=== PATIENT | female | born 2000 | race Caucasian/White ===

== ENCOUNTER 2018-09-19 10:11 | Emergency (ER) | payer OTHER ==
[2018-09-19] MEDS ORDERED: ONDANSETRON 4 MG/2 ML VIAL ONE (10:59)
[2018-09-19] MEDS ORDERED: MORPHINE 4 MG/ML SYR ONE (10:59)
[2018-09-19] MEDS ORDERED: NA CHLORIDE 0.9% 1,000 ML ONE (10:59)
[2018-09-19 11:14] LABS: Absolute Lymphocytes (CBC) 1.2 K/uL (0.7-4.9); Absolute Monocytes 0.8 K/uL (0.1-1.3); Absolute Neutrophil 5.2 K/uL (1.8-8.0); Basophils % 0.2 % (0-1.3); Eosinophils % 1.3 % (0-4.4); Lymphocytes % 16.6 % (15.3-44.8); MPV 8.5 fL (7.6-11.3); Monocytes % 10.8 % (3.3-12.3); RBC Red Blood Cell Count 4.66 M/uL (3.86-4.86)
[2018-09-19 11:19] LABS: ALT/SGPT 21 U/L (12-78); AST/SGOT 28 U/L (15-37); Alkaline Phosphatase 76 U/L (45-117); BUN Blood Urea Nitrogen 14 mg/dL (7-18); Bicarbonate 27 mmol/L (21-32); Bilirubin Direct 0.2 mg/dL (0-0.2); Bilirubin Total 0.7 mg/dL (0.2-1.0); Glucose Level 75 mg/dL (74-106); Lipase 144 U/L (73-393); Potassium 3.8 mmol/L (3.5-5.1); Protein, Total 7.7 g/dL (6.4-8.2); Sodium Level 142 mmol/L (136-145)
--- NOTE | 2018-09-19 12:32 | RAD REPORT ---
EXAM DESCRIPTION: CT - Stone Protocol - 09/19/2018 12:23 pm CLINICAL HISTORY: Left flank pain COMPARISON: None. TECHNIQUE: Axial 5 mm thick images were obtained without oral or IV contrast. The [id number] span s the entirety of the system including uppermost abdomen and lung bases. All CT scans are performed using dose optimization technique as appropriate and may include automated exposure control or mA/KV adjustment according to patient size. FINDINGS: No hydronephrosis or hydroureter. No renal pelvic or caliceal calcifications. No parenchym al calcifications seen. A 3 millimeter calcification is present in the lower left pelvis. Detail is s omewhat limited. However, this appears to be adjacent to but not within the left ureter. No suspiciou s renal masses. Isodense masses and pyelonephritis are not excluded on a stone protocol CT scan. No b ladder calculi. No bladder wall thickening or mass. No significant adrenal finding. Uterus and ovarie s show no suspicious findings. Imaged portions of the liver, spleen and pancreas show no suspicious findings on non-contrast imaging . No gallbladder or biliary tree abnormality identified. No suspicious bowel findings. No hernia, mass or bulky lymphadenopathy noted. No free air, free fluid or inflammatory stranding. No significant bony abnormality. IMPRESSION: No hydronephrosis and no obstructing calculus confirmed. A small 3 mm calcification in the lower left pelvis is believed to be adjacent to the ureter but not within the ureter. No other finding seen to explain left-sided pain. Isodense masses and pyelonephritis are not excluded on stone protocol technique. No acute GI or HAND BRIM IRONER process.
[2018-09-19 12:50] LABS: Urine Blood TRACE (NEG); Urine Glucose NEGATIVE (NEG); Urine Protein NEGATIVE (NEG); Urine Specific Gravity 1.025 (1.005-1.030); Urine pH 5.5 (5.0-7.0)
--- NOTE | 2018-09-19 13:33 | RAD REPORT ---
EXAM DESCRIPTION: Yara Heredia (2 Views)09/19/2018 1:27 pm CLINICAL HISTORY: Chest pain COMPARISON: None FINDINGS: The lungs appear clear of acute infiltrate. The heart is normal size IMPRESSION: No acute abnormalities displayed
--- NOTE | 2018-09-19 15:21 | RAD REPORT ---
EXAM DESCRIPTION: CT - Chest Abdomen Pelvis W Cont - 09/19/2018 3:08 pm CLINICAL HISTORY: Left-sided chest pain, left flank pain COMPARISON: None. TECHNIQUE: Following dynamic enhancement using 100 milliliters nonionic IV contrast, axial imaging o f the chest, abdomen and pelvis was performed. Biphasic technique was utilized through the abdomen. No oral contrast administered. All CT scans are performed using dose optimization technique as appropriate and may include automated exposure control or mA/KV adjustment according to patient size. FINDINGS: No acute infiltrate is identified. In the anterior lower right lung field near the minor f issure there is a 5 millimeter noncalcified pulmonary nodule (image 30/95). No other mass or nodule i dentifiable. No pleural effusion, pleural thickening or pneumothorax. No significant aortic or pulmon josephine arterial tree finding. Mediastinal and hilar regions show no mass or abnormal lymphadenopathy. No chest wall mass or axillary lymphadenopathy. The liver, spleen and pancreas show no suspicious findings. Gallbladder and biliary tree are unremark able. Gallstones can be occult on CT imaging. Symmetric renal function is seen with no mass or hydro nephrosis. No adrenal abnormalities. No pyelonephritis or acute renal parenchymal process. No urinary bladder abnormality. Uterus and ovaries show no suspicious findings for age. There is an involuting 16 millimeter left ovarian cyst present. No free air or pneumatosis. Minimal free fluid in the cul-de-sac is within physiologic limits. No dilated bowel loops or focal bowel wall thickening. No acute GI findings seen. Appendix is normal. No acute or destructive bony process. No significant vascular findings. IMPRESSION: CT chest, abdomen and pelvis imaging shows no significant or suspicious finding. The 5 millimeter pulmonary nodule in the right lung field is not likely of any long-term significance in a patient this age. This is probably a granuloma.
[2018-09-19] MEDS ORDERED: FENTANYL CITR 100 MCG/2 ML ONE (16:16)
[2018-09-19] MEDS ORDERED: MAGNE/ALUM HYDROXD 30 ML UCUP ONE (16:19)
[2018-09-19] MEDS ORDERED: LIDOCAINE VISCOUS 2% SOLN 15 ML UDC ONE (16:19)
--- NOTE | 2018-09-19 16:39 | ER ---
Nurse's Notes [facility] Name: Tennille Tellez Age: 18 yrs Sex: Female : 2000 Arrival Date: 09/19/2018 Time: 10:12 Bed 20 Private MD: Diagnosis: Generalized abdominal pain Presentation: 09/19 10:27 Presenting complaint: Patient states: Left sided rib pain that started this morning, sg denies N/V/D/Fever, reports the pain has increased throughout the day. Transition of care: patient was not received from another setting of care. Onset of symptoms was September 19, 2018. Risk Assessment: Do you want to hurt yourself or someone else? Patient reports no desire to harm self or others. Initial Sepsis Screen: Does the patient meet any 2 criteria? HR > 90 bpm. Does the patient have a suspected source of infection? No. Patient's initial sepsis screen is negative. Care prior to arrival: None. 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 - Social history:: Smoking status: Patient uses tobacco products, denies chronic smoking, but will smoke occasionally. - Ebola Screening: : Patient negative for fever greater than or equal to 101.5 degrees Fahrenheit, and additional compatible Ebola Virus Disease symptoms Patient denies exposure to infectious person Patient denies travel to an Ebola-affected area in the 21 days before illness onset No symptoms or risks identified at this time. Screenin:30 Abuse screen: Denies threats or abuse. Denies injuries from another. Nutritional aj1 screening: No deficits noted. Tuberculosis screening: No symptoms or risk factors identified. Assessment: 10:30 General: Appears in no apparent distress. uncomfortable, Behavior is cooperative, aj1 anxious, crying, restless. Pain: Complains of pain in left upper quadrant and anterior aspect of left lateral abdomen Pain radiates to back Pain currently is 10 out of 10 on a pain scale. Neuro: Level of Consciousness is awake, alert, obeys commands, Oriented to person, place, time, situation. Cardiovascular: Patient's skin is warm and dry. Respiratory: Airway is patent Respiratory effort is even, unlabored, Respiratory pattern is regular, symmetrical. GI: Abdomen is flat, non-distended, Bowel sounds present X 4 quads. Abd is soft X 4 quads Abdomen is tender to palpation in left upper quadrant Reports nausea, Patient currently denies diarrhea, vomiting. : No signs and/or symptoms were reported regarding the genitourinary system. EENT: No signs and/or symptoms were reported regarding the EENT system. Derm: No signs and/or symptoms reported regarding the dermatologic system. Skin is pink, warm \T\ dry. normal. Musculoskeletal: No signs and/or symptoms reported regarding the musculoskeletal system. Circulation, motion, and sensation intact. 11:30 Reassessment: Patient appears in no apparent distress at this time. No changes from aj1 previously documented assessment. Patient and/or family updated on plan of care and expected duration. Pain level reassessed. Patient is alert, oriented x 3, equal unlabored respirations, skin warm/dry/pink. 12:15 Reassessment: Patient appears in no apparent distress at this time. No changes from aj1 previously documented assessment. Patient and/or family updated on plan of care and expected duration. Pain level reassessed. Patient is alert, oriented x 3, equal unlabored respirations, skin warm/dry/pink. Patient states feeling better. Patient states symptoms have improved. 13:47 Reassessment: Patient appears in no apparent distress at this time. No changes from aj1 previously documented assessment. Patient and/or family updated on plan of care and expected duration. Pain level reassessed. Patient is alert, oriented x 3, equal unlabored respirations, skin warm/dry/pink. 14:31 Reassessment: Patient and/or family updated on plan of care and expected duration. Pain aj1 level reassessed. General: Appears in no apparent distress. comfortable, Behavior is calm, cooperative, appropriate for age. Neuro: Level of Consciousness is awake, alert, obeys commands, Oriented to person, place, time, situation. Cardiovascular: Patient's skin is warm and dry. Respiratory: Airway is patent Respiratory effort is even, unlabored, Respiratory pattern is regular, symmetrical. GI: Abdomen is flat, non-distended. Derm: No signs and/or symptoms reported regarding the dermatologic system. Skin is pink, warm \T\ dry. normal. Musculoskeletal: No signs and/or symptoms reported regarding the musculoskeletal system. Circulation, motion, and sensation intact. 15:30 Reassessment: Patient appears in no apparent distress at this time. No changes from aj1 previously documented assessment. Patient and/or family updated on plan of care and expected duration. Pain level reassessed. Patient is alert, oriented x 3, equal unlabored respirations, skin warm/dry/pink. 16:29 Reassessment: Patient appears in no apparent distress at this time. No changes from aj1 previously documented assessment. Patient and/or family updated on plan of care and expected duration. Pain level reassessed. Patient is alert, oriented x 3, equal unlabored respirations, skin warm/dry/pink. Vital Signs: 10:26 BP 151 / 90; Pulse 92; Resp 19; Temp 97.8; Pulse Ox 98% on R/A; Weight 63.5 kg; Height sg 5 ft. 6 in. (167.64 cm); Pain 10/10; 11:27 BP 118 / 65; Pulse 78; Resp 17; Temp 100.1(O); Pulse Ox 100% on R/A; mh5 12:15 BP 115 / 65; Pulse 68; Resp 16; Pulse Ox 100% ; aj1 13:34 BP 121 / 74; Pulse 72; Resp 17; Temp 98.4(O); Pulse Ox 100% on R/A; mh5 14:32 BP 106 / 63; Pulse 70; Resp 16; Pulse Ox 100% on R/A; aj1 15:30 BP 116 / 77; Pulse 63; Resp 18; Pulse Ox 100% on R/A; aj1 16:30 BP 123 / 65; Pulse 73; Resp 16; Pulse Ox 100% on R/A; aj1 10:26 Body Mass Index 22.60 (63.50 kg, 167.64 cm) ED Course: 10:12 Patient arrived in ED. rg4 10:26 Arm band placed on. sg 10:28 Triage completed. sg 10:28 Jorge L Powell PA is PHCP. [facility] 10:28 Osvaldo Cornell MD is Attending Physician. [facility] 10:31 Darby Elizabeth RN is Primary Nurse. aj1 10:35 Missed attempt(s): 20 gauge in right antecubital area. Bleeding controlled, band aid aj1 applied, catheter tip intact. 10:37 Missed attempt(s): 22 gauge in left forearm. Bleeding controlled, band aid applied, aj1 catheter tip intact. 11:17 Patient has correct armband on for positive identification. Placed in gown. Bed in low mh5 position. Call light in reach. Adult w/ patient. Warm blanket given. Pulse ox on. NIBP on. 11:17 Initial lab(s) drawn, by me, sent to lab. Urine collected: clean catch specimen, clear. 5 Inserted saline lock: 22 gauge in right antecubital area, using aseptic technique. Blood collected. 11:18 Basic Metabolic Panel Sent. 5 11:18 Hepatic Function Sent. 5 11:18 Lipase Sent. 5 11:38 Patient did not have IV access during this emergency room visit. IV discontinued, mh5 Pressure dressing applied, REDNESS DISCONTINUED IV. 12:23 CT Stone Protocol In Process Unspecified. EDMS 13:27 Chest Pa And Lat (2 Views) XRAY In Process Unspecified. EDMS 14:57 Inserted saline lock: 22 gauge in left antecubital area, using aseptic technique. Blood ss collected. 15:08 CT completed. Patient tolerated procedure well. Patient moved back from CT. ia 15:09 CT Chest, Abdomen, Pelvis - W/Contrast In Process Unspecified. EDMS 16:31 No provider procedures requiring assistance completed. aj1 16:51 Shima Bullock MD is Referral Physician. [facility] 16:56 IV discontinued, intact, bleeding controlled, No redness/swelling at site. Pressure ss dressing applied. Administered Medications: 11:08 Drug: Zofran 4 mg Route: IVP; Site: right antecubital; aj1 11:08 Drug: NS 0.9% 1000 ml Route: IV; Rate: 1 bolus; Site: right antecubital; aj1 11:09 Drug: morphine 4 mg Route: IVP; Site: right antecubital; aj1 14:14 CANCELLED (different medication route): Ketorolac 30 mg IVP once jmm 16:13 Drug: fentaNYL (PF) 50 mcg Route: IVP; Site: left antecubital; aj1 16:13 Drug: GI Cocktail without - (Maalox Suspension 30 ml, Lidocaine Liquid 2 % 15 aj1 ml) Route: PO; Outcome: 16:38 Discharge ordered by . chris 16:55 Discharged to home ambulatory, with family. 16:55 Condition: good 16:55 Discharge instructions given to patient, family, Instructed on discharge instructions, follow up and referral plans. medication usage, Demonstrated understanding of instructions, follow-up care, medications, Prescriptions given X 1. 16:56 Patient left the ED. ss Signatures: Dispatcher [employer] EDMS Darby Elizabeth RN RN aj1 Ross Westbrook RN RN Jorge L Degroot PA PA jmm Smirch, Shelby, RN RN ss Garcia, Rubi rg4 Scottie Be Maria [facility] Corrections: (The following items were deleted from the chart) 12:32 12:31 Reassessment: Patient appears in no apparent distress at this time. No changes aj1 from previously documented assessment. Patient and/or family updated on plan of care and expected duration. Pain level reassessed. Patient is alert, oriented x 3, equal unlabored respirations, skin warm/dry/pink. Patient states feeling better. Patient states symptoms have improved. aj1
--- NOTE | 2018-09-19 16:39 | EDPHYS ---
Physician Documentation [facility] Name: Tennille Tellez Age: 18 yrs Sex: Female : 2000 Arrival Date: 09/19/2018 Time: 10:12 Bed 20 Private MD: ED Physician Osvaldo Cornell HPI: 09/19 10:38 This 18 yrs old Female presents to ER via Ambulatory with complaints of Flank jmm Pain. 10:38 The patient complains of pain in the left flank. The pain does not radiate. Onset: The jmm symptoms/episode began/occurred acutely, this morning. Modifying factors: The symptoms are alleviated by nothing. the symptoms are aggravated by nothing. This is a 18 year old female with no chronic medical conditions that presents to the ED with complaints of left flank pain beginning this morning withy nausea. Patient states she has felt nauseous over the past 3 days. . 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 - Social history:: Smoking status: Patient uses tobacco products, denies chronic smoking, but will smoke occasionally. - Ebola Screening: : Patient negative for fever greater than or equal to 101.5 degrees Fahrenheit, and additional compatible Ebola Virus Disease symptoms Patient denies exposure to infectious person Patient denies travel to an Ebola-affected area in the 21 days before illness onset No symptoms or risks identified at this time. ROS: 10:38 Constitutional: Negative for fever, chills, and weight loss, Cardiovascular: Negative jmm for chest pain, palpitations, and edema, Respiratory: Negative for shortness of breath, cough, wheezing, and pleuritic chest pain. 10:38 Abdomen/GI: Positive for abdominal pain, nausea. 10:38 Back: Positive for flank pain, on the left. 10:38 All other systems are negative. Exam: 10:38 Head/Face: atraumatic. Eyes: EOMI, no conjunctival erythema appreciated ENT: Moist jmm Mucus Membranes Neck: Trachea midline, Supple Chest/axilla: Normal chest wall appearance and motion. Cardiovascular: Regular rate and rhythm. No edema appreciated Respiratory: Normal respirations, no respiratory distress appreciated 10:38 Skin: General appearance color normal MS/ Extremity: Moves all extremities, no obvious deformities appreciated, no edema noted to the lower extremities Neuro: Awake and alert, normal gait Psych: Behavior is normal, Mood is normal, Patient is cooperative and pleasant 10:38 Constitutional: The patient appears alert, awake, anxious, uncomfortable. 10:38 Abdomen/GI: Inspection: abdomen appears normal, Bowel sounds: normal, Palpation: soft, moderate abdominal tenderness, in the anterior aspect of left lateral abdomen and left upper quadrant. 10:38 Back: CVA tenderness, that is mild, is noted on the left. Vital Signs: 10:26 BP 151 / 90; Pulse 92; Resp 19; Temp 97.8; Pulse Ox 98% on R/A; Weight 63.5 kg; Height sg 5 ft. 6 in. (167.64 cm); Pain 10/10; 11:27 BP 118 / 65; Pulse 78; Resp 17; Temp 100.1(O); Pulse Ox 100% on R/A; mh5 12:15 BP 115 / 65; Pulse 68; Resp 16; Pulse Ox 100% ; aj1 13:34 BP 121 / 74; Pulse 72; Resp 17; Temp 98.4(O); Pulse Ox 100% on R/A; mh5 14:32 BP 106 / 63; Pulse 70; Resp 16; Pulse Ox 100% on R/A; aj1 15:30 BP 116 / 77; Pulse 63; Resp 18; Pulse Ox 100% on R/A; aj1 16:30 BP 123 / 65; Pulse 73; Resp 16; Pulse Ox 100% on R/A; aj1 10:26 Body Mass Index 22.60 (63.50 kg, 167.64 cm) sg MDM: 10:38 Patient medically screened. chris 16:37 Data reviewed: vital signs, nurses notes. Counseling: I had a detailed discussion with chris the patient and/or guardian regarding: the historical points, exam findings, and any diagnostic results supporting the discharge/admit diagnosis, lab results, radiology results, the need for outpatient follow up, to return to the emergency department if symptoms worsen or persist or if there are any questions or concerns that arise at home. ED course: CT negative. Patient's symptoms relieved with GI cocktail Patient is advised to follow up with GI for further evaluation. Patient is otherwise given strict return precautions. Patient understood and agrees with the plan of care. . 09/19 10:42 Order name: Basic Metabolic Panel; Complete Time: 11:21 [facility] 09/19 10:42 Order name: CBC with Diff; Complete Time: 11:17 [facility] 09/19 10:42 Order name: Creatinine for Radiology; Complete Time: 11:21 [facility] 09/19 10:42 Order name: Hepatic Function; Complete Time: 11:21 [facility] 09/19 10:42 Order name: Lipase; Complete Time: 11:21 [facility] 09/19 11:25 Order name: Urine Dipstick--Ancillary (enter results); Complete Time: 13:48 [facility] 09/19 11:10 Order name: CT Stone Protocol; Complete Time: 12:37 [facility] 09/19 11:25 Order name: Urine --Ancillary (enter results); Complete Time: 13:48 [facility] 09/19 12:38 Order name: Flu; Complete Time: 13:48 [facility] 09/19 12:38 Order name: D-Dimer; Complete Time: 14:31 [facility] 09/19 12:41 Order name: Chest Pa And Lat (2 Views) XRAY; Complete Time: 13:48 [facility] 09/19 14:42 Order name: CT Chest, Abdomen, Pelvis - W/Contrast; Complete Time: 15:26 [facility] 09/19 10:29 Order name: Urine Dipstick-Ancillary (obtain specimen); Complete Time: 11:19 [facility] 09/19 10:29 Order name: Urine Test (obtain specimen); Complete Time: 11:19 [facility] 09/19 10:42 Order name: IV Saline Lock; Complete Time: 11: [facility] 09/19 10:42 Order name: Labs collected and sent; Complete Time: 11:09 [facility] Administered Medications: 11:08 Drug: Zofran 4 mg Route: IVP; Site: right antecubital; aj1 11:08 Drug: NS 0.9% 1000 ml Route: IV; Rate: 1 bolus; Site: right antecubital; aj1 11:09 Drug: morphine 4 mg Route: IVP; Site: right antecubital; aj1 14:14 CANCELLED (different medication route): Ketorolac 30 mg IVP once [facility] 16:13 Drug: fentaNYL (PF) 50 mcg Route: IVP; Site: left antecubital; aj1 16:13 Drug: GI Cocktail without - (Maalox Suspension 30 ml, Lidocaine Liquid 2 % 15 aj1 ml) Route: PO; Disposition: 09/19/18 16:38 Discharged to Home. Impression: Generalized abdominal pain. - Condition is Stable. - Discharge Instructions: Abdominal Pain, Adult. - Prescriptions for Pepcid 20 mg Oral Tablet - take 1 tablet by ORAL route every 12 hours for 10 days; 20 tablet. - Medication Reconciliation Form, Thank You Letter, Antibiotic Education, Prescription Opioid Use form. - Follow up: Private Physician; When: 2 - 3 days; Reason: Recheck today's complaints, Continuance of care, Re-evaluation by your physician. Follow up: Shima Bullock MD; When: As needed; Reason: Recheck today's complaints, Continuance of care, Re-evaluation by your physician. Addendum: 09/20/2018 19:02 Co-signature as Attending Physician, Osvaldo Cornell MD I agree with the assessment and k dr plan of care. Signatures: Dispatcher [employer] [facility] Darby Elizabeth RN RN aj1 Ross Westbrook RN RN Osvaldo Cornell MD MD [facility] Jorge L Powell PA PA [facility] Mery Nguyen RN RN ss Corrections: (The following items were deleted from the chart) 09/19 13:10 12:39 Chest Single View+RAD.RAD.BRZ ordered. [facility] 14:14 13:58 Ketorolac 30 mg IVP once ordered. [facility] 14:47 14:42 Chest Abdomen W/ Con+CT.RAD.BRZ ordered. [facility] 16:51 16:38 09/19/2018 16:38 Discharged to Home. Impression: Generalized abdominal pain. [facility] Condition is Stable. Forms are Medication Reconciliation Form, Thank You Letter, Antibiotic Education, Prescription Opioid Use. Follow up: Private Physician; When: 2 - 3 days; Reason: Recheck today's complaints, Continuance of care, Re-evaluation by your physician. [facility] 16:56 16:51 09/19/2018 16:38 Discharged to Home. Impression: Generalized abdominal pain. Condition is Stable. Discharge Instructions: Abdominal Pain, Adult. Prescriptions for Pepcid 20 mg Oral Tablet - take 1 tablet by ORAL route every 12 hours for 10 days; 20 tablet. and Forms are Medication Reconciliation Form, Thank You Letter, Antibiotic Education, Prescription Opioid Use. Follow up: Private Physician; When: 2 - 3 days; Reason: Recheck today's complaints, Continuance of care, Re-evaluation by your physician. Follow up: Shima Bullock; When: As needed; Reason: Recheck today's complaints, Continuance of care, Re-evaluation by your physician. chris
== END 2018-09-19 16:56 | disposition home or self-care (01) ==
LOC: ER 10:11
DX: R10.84 Generalized abdominal pain (principal); Z72.0 Tobacco use
CPT/HCPCS: 36415; 71046; 71260; 74176; 74177; 76377; 80048; 80076; 81003; 81025; 83690; 85025; 85379; 87804; 99284; J2405; J3010; J7030; Q9967